=== PATIENT | male | born 1940 | race Caucasian/White ===

== ENCOUNTER → 2017-02-04 | Outpatient (CLI) | payer MEDICARE, BC, OTHER ==
[~2017-02-04] MED LIST: /ATOR40TA PO; /FEXO18TA; AMLO5TAB; AMLO5TAB2 PO; ASPI81TA45 PO; GLUC500T PO; LASI40TA PO; LOPR50TA; NORV5TAB; OMEP20TA7 PO; TRAN4TAB PO; VITA100067 PO; VITA250011 PO
== END ==
LOC: M LAB 13:24
PROVIDERS: ATTEND Ophthalmology
DX: H02.403 Unspecified ptosis of bilateral eyelids (principal)

== ENCOUNTER 2017-02-15 05:57 | Day surgery (SDC) | payer MEDICARE, BC, OTHER ==
--- NOTE | 2017-02-14 11:14 | HPE ---
DATE OF ADMISSION: 02/15/2017 ROOM: Operating room. HISTORY AND CHIEF COMPLAINT: Mr. Steinberg is a 76-year-old gentleman who has had progressive drooping of the upper eyelids of both eyes. This is affecting his vision and visual field. He is being admitted to have a levator aponeurosis resection, advancement and reattachment with a blepharoplasty of both upper eyelids under local anesthetic with monitored sedation. PAST OCULAR HISTORY: Please see the history of present illness. Previous levator aponeurosis resection, advancement and reattachment with blepharoplasty of both upper eyelids in 2000, orbital inflammatory syndrome right eye 2001 and 2003. Previous cataract surgery both eyes. Dry eye syndrome both eyes. Nonproliferative diabetic retinopathy left eye. Chorioretinal scar right eye. Hypertensive retinopathy both eyes. Senile ectropion lower eyelids both eyes. PAST MEDICAL HISTORY AND PREOPERATIVE MEDICAL EVALUATION AND ASSESSMENT: Please see the report by SCOUT Diaz. Diabetes mellitus type 2, coronary artery disease, previous heart attack 1987 and 1995, gastroesophageal reflux disease (GERD), hypertension. MEDICATIONS: Please refer to the report by SCOUT Diaz. Amlodipine, aspirin 81 mg, vitamin B12, furosemide, Lipitor, metformin, Nitrostat, omeprazole, RA vitamin D, trandolapril. ALLERGIES: No known drug allergies. FAMILY HISTORY: Positive for cataract with respect to eye disease. SOCIAL HISTORY: Previous smoker. On examination, The visual acuity with current glasses: Right eye 20/25, -1, left eye 20/20, -2. Intraocular pressure by Goldmann tonometry: 15 mmHg. Pupils: Both eyes: Round, regular and reactive to light. Extraocular movements: Both eyes: Full. External examination: Both eyes: Involutional dermatochalasis upper and lower eyelids. Orbital fat herniation lower eyelids. Margin to brow skin measurement: Right eye: 27 mm, left eye: 30 mm. Lateral trichiasis upper lid left eye. Myogenic ptosis upper eyelids both eyes. Marginal reflex distance: Both eyes: 1 mm. Levator function both eyes: 12 mm. No lid lagophthalmos present. Senile ectropion lower eyelids both eyes. 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 Slit lamp examination: Corneas: Both eyes: 1+ superficial punctate keratitis. Anterior chamber: Both eyes: Normal. Iris: Both eyes: Normal. Lens: Both eyes: PCIOL. Visual: Ptosis visual field untaped: Right eye: 40 degrees superior visual field loss, left eye: 45 degree superior visual field loss. Ptosis visual field taped: Both eyes: 10 degree superior visual field loss. IMPRESSION: 1. Myogenic ptosis upper eyelids both eyes, interfering with vision and visual field. 2. Involutional dermatochalasis upper eyelids both eyes. PLAN: I discussed the findings with Mr. Steinberg. I indicated to him that the myogenic ptosis and the dermatochalasis of both upper eyelids have reoccurred. I discussed with him the procedure, benefit, expected outcomes, risks, and alternatives. I mentioned that a levator aponeurosis resection, advancement and reattachment with a blepharoplasty procedure both upper eyelids with improve the position of his upper eyelids and improve the vision and visual field. I mentioned to him that the risk of surgery includes, but is not limited to, surgery is not guaranteed, recurrence, bleeding, infection, inflammation, scarring, over correction, under correction, injury to the globe or the orbit causing impaired vision. I mentioned to him that he has had previous orbital inflammatory syndrome on two occasions. This can reoccur. I have prescribed prednisone 20 mg daily for 5 days postoperatively. Mr. Steinberg elected to have the said surgery performed. I obtained an informed consent. I advised him to stop his aspirin 81 mg 1 week preoperatively. His primary care provider will recommend any other preoperative and postoperative medications. COLIN
[~2017-02-15] VITALS: Ht 170.2 cm; Wt 88.0 kg
[2017-02-15] MEDS ORDERED: LIDOCAINE W/EPINEPHRINE 1% 20ML VIAL As Ordered ONE (06:27)
[2017-02-15] MEDS ORDERED: BUPIVACAINE 0.75% 10 ML VIAL As Ordered ONE (06:27)
[2017-02-15] MEDS ORDERED: HYALURONIDASE 200 UNITS/ML VIAL (J3470) As Ordered ONE (06:28)
[2017-02-15] MEDS ORDERED: CIPROFLOXACIN 0.3% OPHTH OINTMENT As Ordered ONE (06:29)
[2017-02-15] MEDS ORDERED: LR 1,000 ML IV ONE (06:30)
[2017-02-15] MEDS ORDERED: dexameTHASONE 4 MG/ML 1ML VIAL (J1100) IV ONE (06:30)
[2017-02-15] MEDS ORDERED: TOBRADEX OPHTH OINT 3.5 GM As Ordered ONE (06:30)
[2017-02-15] MEDS ORDERED: fentaNYL 100 MCG/2 ML INJECTION (J3010) As Ordered ONE (07:15)
[2017-02-15] MEDS ORDERED: PROPOFOL 200 MG/20 ML VIAL As Ordered ONE (07:15)
[2017-02-15] MEDS ORDERED: MIDAZOLAM INJ 2 MG/2 ML VIAL (J2250) As Ordered ONE (07:15)
[2017-02-15] MEDS ORDERED: POVIDONE-IODINE 5% OPHTH PREP SOL 30ML As Ordered ONE (07:29)
[2017-02-15] MEDS ORDERED: CIPROFLOXACIN 0.3% OPHTH OINTMENT OU SCH (09:00)
[2017-02-15] MEDS ORDERED: ACETAMINOPHEN TAB 650MG DOSE (2X325MG) PO PRN (09:15)
[2017-02-15] MEDS ORDERED: PERCOCET 5MG/325MG TAB PO PRN (09:30)
[2017-02-15] MEDS ORDERED: LR 1,000 ML IV SCH (09:30)
[2017-02-15] MEDS ORDERED: ONDANSETRON 4MG/2ML VIAL (J2405) IV PRN (09:30)
[2017-02-15 09:35] VITALS: BP 164/74
--- NOTE | 2017-02-15 19:53 | RO ---
DATE OF PROCEDURE: 02/15/2017 SURGEON: Danilo Tillman MD HAIR OR BEAUTY [employer]ON ASSISTANT: PREOPERATIVE DIAGNOSIS: 1. Myogenic ptosis upper eyelid both eyes, affecting vision and visual field. 2. Involutional dermatochalasis upper eyelids both eyes. POSTOPERATIVE DIAGNOSIS: 1. Myogenic ptosis upper eyelids, both eyes, affecting vision and visual field. 2. Involutional dermatochalasis upper eyelids ,both eyes fatty infiltration of levator muscle, Herings phenomenon positive, scar tissue of orbital septum and levator aponeurosis. 3. 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 ANESTHESIA: Local with monitored sedation. OPERATIVE PROCEDURE: 1. Levator aponeurosis resection, advancement and reattachment of upper eyelid both eyes. 2. Blepharoplasty upper eyelids both eyes. 3. Excision of scar tissue of orbital septum and levator aponeurosis both eyes. 4. Transverse tarsotomy of lateral eyelid of left eye. DESCRIPTION OF OPERATION: The patient was brought into the operating room and positioned appropriately. A surgical marking pen was used to jason the upper lid crease height at 9 mm using a pair of calipers and then the upper incision line was marked leaving 20 mm of skin from the eyebrow to the lash line. After adequate sedation, local anesthetic consisting of Xylocaine 1% mixed 50/50 with Marcaine 0.75% and epinephrine 1:200,000 with 200 units of Vitrase per 10 mL of local anesthetic, 2.25 mL was injected subcutaneously along the incision lines and superior border of the tarsus of both upper eyelids. The full face was prepped with Betadine and draped in the usual sterile manner. A 6-0 silk traction suture was placed at the lid margin just nasal to the pupil and the upper eyelid was retracted inferiorly for both eyes. The skin incision was made with a #15 blade both eyes. Good hemostasis was ensured throughout the procedure using bipolar cautery. The orbicularis muscle was identified and incised at the temporal margin and then dissected down to the suborbicularis plane both eyes. The myocutaneous flap was then excised from temporal to medial both eyes. The orbital septum was identified and incised just inferior to the superior orbital rim and the incision was extended medially and laterally. The medial and central orbital fat pads were identified and retracted to reveal the levator muscle and aponeurosis which was detached from its normal position on the superior tarsus. The levator muscle had fatty infiltration. There was scar tissue secondary to previous surgery and orbital inflammatory syndrome between the orbital septum and levator aponeuosis of both eyes. The scar tissue was excised from the upper eyelids of both eyes. The superior surface of the tarsus was exposed. A double-armed 5-0 nylon suture was used to reattach the levator aponeurosis to the tarsus both eyes. The suture was tied temporarily. The patient was sat up and the lid margin contour and marginal reflex distance was checked. The 5-0 nylon suture was adjusted until the marginal reflex distance was 3 mm. The patient was then placed supine and the 5-0 nylon suture was tied and cut. 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 Transverse tarsotomy of lateral eyelid of left eye was performed. Hemostasis was checked. The skin and orbicularis layer was then closed with interrupted and continuous 6-0 plain suture for both upper eyeids. There were no complications during the surgery. At the end of the procedure, a combination of Ciloxan ophthalmic ointment mixed with TobraDex ophthalmic ointment was applied to the incision and the sutures. A cold saline compress was placed over the closed upper eyelid, OU. The patient left for the recovery room in good condition. Specimens were sent to pathology. [facility] CLINICFrancheska
[2017-02-16] MEDS ORDERED: predniSONE 20 MG TAB PO SCH (09:00)
== END 2017-02-15 09:45 | disposition home or self-care (01) ==
LOC: M SDC 05:57
PROVIDERS: ATTEND Ophthalmology
DX: H02.831 Dermatochalasis of right upper eyelid (principal); H02.832 Dermatochalasis of right lower eyelid; M62.89 Other specified disorders of muscle; R29.818 Other symptoms and signs involving the nervous system; H02.011 Cicatricial entropion of right upper eyelid; H02.014 Cicatricial entropion of left upper eyelid; E11.9 Type 2 diabetes mellitus without complications; I10 Essential (primary) hypertension; I25.2 Old myocardial infarction; I49.9 Cardiac arrhythmia, unspecified; I25.10 Atherosclerotic heart disease of native coronary artery without angina pectoris; E78.00 Pure hypercholesterolemia, unspecified; R60.0 Localized edema; K21.9 Gastro-esophageal reflux disease without esophagitis; M12.9 Arthropathy, unspecified; M54.2 Cervicalgia; J32.9 Chronic sinusitis, unspecified; Z88.5 Allergy status to narcotic agent; Z91.041 Radiographic dye allergy status; Z79.899 Other long term (current) drug therapy; Z79.82 Long term (current) use of aspirin; Z87.891 Personal history of nicotine dependence; Z96.1 Presence of intraocular lens; H02.423 Myogenic ptosis of bilateral eyelids
CPT/HCPCS: 15823; 67904; 88302; J1100; J2250; J3010; J3470

== ENCOUNTER → 2023-05-18 | Outpatient (CLI) | payer MEDICARE, BC, OTHER ==
[~2023-05-18] MED LIST changes: -/ATOR40TA PO; +AMLO1TAB24 PO; -AMLO5TAB2 PO; +LIPI1TAB2 PO
== END ==
LOC: M EKG 12:40
PROVIDERS: ATTEND Physician Assistant
DX: R42 Dizziness and giddiness (principal)

== ENCOUNTER → 2023-06-24 | Outpatient (CLI) | payer MEDICARE, BC | LOC: M CARPUL 08:41 | PROVIDERS: ATTEND Physician Assistant | DX: R06.02 Shortness of breath (principal) ==

== ENCOUNTER 2023-12-28 07:54 | Inpatient (IN) | payer MEDICARE, BC ==
[~2023-12-28] VITALS: Ht 172.7 cm; Wt 92.3 kg
[2023-12-28 11:53] VITALS: BP 157/76; TEMP 97.9; O2SAT 92
[2023-12-28] MEDS: INSULIN LISPRO (NovoLOG) PER UNIT SC SCH ×3 (12:00→21:00)
[2023-12-28] MEDS ORDERED: DEXTROSE 50% 50ML SYRINGE IV PRN (12:15)
[2023-12-28] MEDS ORDERED: GLUCOSE 4 GM CHEW PO PRN (12:15)
[2023-12-28] MEDS ORDERED: GLUCAGON INJ 1MG VIAL SC PRN (12:15)
[2023-12-28] MEDS ORDERED: SPIR-10 PO (12:48)
[2023-12-28] MEDS ORDERED: POTA-151 PO (12:48)
[2023-12-28] MEDS ORDERED: NITR0.4S14 SL (12:48)
[2023-12-28] MEDS ORDERED: AMLO1TAB25 PO (12:48)
[2023-12-28] MEDS ORDERED: VITA200048 PO (12:48)
[2023-12-28] MEDS ORDERED: ASPI81TA26 PO (12:55)
[2023-12-28] MEDS ORDERED: ATOR40TA75 PO (12:55)
[2023-12-28] MEDS ORDERED: TORS20TA2 PO (12:55)
[2023-12-28] MEDS ORDERED: OMEP1CAP73 PO (12:55)
[2023-12-28] MEDS ORDERED: B-12100021 PO (12:55)
[2023-12-28] MEDS ORDERED: METF500T13 PO (12:55)
[2023-12-28] MEDS ORDERED: AMIO200T49 PO (12:56)
[2023-12-28 12:57] LABS: BASO % 0.3 % (0.0-1.0); EOS % 0.2 % (0.0-3.0); HEMATOCRIT 38.1 % (42.0-52.0); HEMOGLOBIN 12.5 g/dl (13.5-17.5); LYMPH % 15.2 % (24.0-44.0); MEAN CORPUSCULAR HEMOGLOBIN 29.4 pg (27.0-33.0); MEAN CORPUSCULAR HGB CONC 32.8 g/dl (32.0-36.5); MEAN CORPUSCULAR VOLUME 89.6 fl (80.0-96.0); MONO # 1.1 10^3/uL (0.0-0.8); MONO % 8.3 % (2.0-8.0); NEUTROPHILS # 9.8 10^3/uL (1.5-8.5); NEUTROPHILS % 75.3 % (36.0-66.0); PLATELET COUNT, AUTOMATED 360 10^3/uL (150-450); RED BLOOD COUNT 4.25 10^6/uL (4.30-6.10)
[2023-12-28] MEDS ORDERED: HOME MED LIST COMPLETE! XX SCH (13:00)
[2023-12-28] MEDS ORDERED: NITROGLYCERIN 0.4MG SUBL TABLET SL PRN (13:00)
[2023-12-28 13:30] LABS: ALBUMIN 3.4 G/DL (3.2-5.2); ALKALINE PHOSPHATASE 159 U/L (46-116); ALT/SGPT 35 U/L (7.0-40); AST/SGOT 21 U/L (<34); BILIRUBIN,TOTAL 0.7 MG/DL (0.3-1.2); BLOOD UREA NITROGEN 19 MG/DL (9-23); CALCIUM LEVEL 10.1 MG/DL (8.3-10.6); CARBON DIOXIDE LEVEL 34 MMOL/L (20-31); CHLORIDE LEVEL 100 MMOL/L (98-107); CREATININE FOR GFR 1.14 MG/DL (0.70-1.30); GLOMERULAR FILTRATION RATE > 60.0 (>35); GLUCOSE, FASTING 103 MG/DL (74-106); MAGNESIUM LEVEL 1.9 MG/DL (1.8-2.4); POTASSIUM SERUM 4.5 MMOL/L (3.5-5.1); SODIUM LEVEL 136 MMOL/L (136-145); TOTAL PROTEIN 6.9 G/DL (5.7-8.2)
[2023-12-28] MEDS: ASPIRIN 81MG ENTERIC TABLET PO SCH (13:31)
[2023-12-28] MEDS: amLODIPine 5 MG TAB PO SCH (13:32)
[2023-12-28] MEDS: ATORVASTATIN 20 MG TAB PO SCH (13:32)
[2023-12-28] MEDS: AMIODARONE 200 MG TAB (PACERONE) PO SCH (13:32)
[2023-12-28] MEDS: NS 1,000 ML IV SCH (14:04)
[2023-12-28] MEDS: PANTOPRAZOLE 40MG VIAL IV SCH (14:04)
[2023-12-28 17:24] VITALS: BP 148/82; TEMP 98; O2SAT 96
[2023-12-28 20:27] VITALS: BP 142/66; TEMP 98; O2SAT 94
[2023-12-28] MEDS: HEPARIN SOD (PORCINE) 5000UNITS/ML 1ML VIAL/SYRINGE SQ SCH (21:09)
[2023-12-28 23:12] VITALS: BP 137/62; TEMP 98.1; O2SAT 94
[2023-12-29 03:23] VITALS: BP 150/72; TEMP 97.1; O2SAT 91
[2023-12-29 06:28] LABS: BASO % 0.3 % (0.0-1.0); EOS # 0.1 10^3/uL (0.0-0.5); EOS % 1.3 % (0.0-3.0); HEMATOCRIT 36.7 % (42.0-52.0); HEMOGLOBIN 11.7 g/dl (13.5-17.5); LYMPH # 2.7 10^3/uL (1.5-5.0); LYMPH % 26.1 % (24.0-44.0); MEAN CORPUSCULAR HEMOGLOBIN 29.1 pg (27.0-33.0); MEAN CORPUSCULAR HGB CONC 31.9 g/dl (32.0-36.5); MEAN CORPUSCULAR VOLUME 91.3 fl (80.0-96.0); MONO # 1.1 10^3/uL (0.0-0.8); MONO % 10.3 % (2.0-8.0); NEUTROPHILS # 6.4 10^3/uL (1.5-8.5); NEUTROPHILS % 61.3 % (36.0-66.0); PLATELET COUNT, AUTOMATED 338 10^3/uL (150-450); RED BLOOD COUNT 4.02 10^6/uL (4.30-6.10); WHITE BLOOD COUNT 10.4 10^3/uL (4.0-10.0)
[2023-12-29 07:18] LABS: ALKALINE PHOSPHATASE 140 U/L (46-116); ALT/SGPT 28 U/L (7.0-40); AST/SGOT 21 U/L (<34); BILIRUBIN,TOTAL 0.7 MG/DL (0.3-1.2); BLOOD UREA NITROGEN 15 MG/DL (9-23); CALCIUM LEVEL 9.6 MG/DL (8.3-10.6); CARBON DIOXIDE LEVEL 31 MMOL/L (20-31); CHLORIDE LEVEL 106 MMOL/L (98-107); GLOMERULAR FILTRATION RATE > 60.0 (>35); GLUCOSE, FASTING 97 MG/DL (74-106); POTASSIUM SERUM 4.1 MMOL/L (3.5-5.1); SODIUM LEVEL 140 MMOL/L (136-145); TOTAL PROTEIN 6.2 G/DL (5.7-8.2)
[2023-12-29 07:24] VITALS: BP 151/66; O2SAT 96
[2023-12-29 08:27] VITALS: BP 151/66
[2023-12-29] MEDS: TORSEMIDE 20 MG TAB PO SCH (08:27)
[2023-12-29] MEDS: SENOKOT S TAB PO SCH (08:28)
[2023-12-29] MEDS: SPIRONOLACTONE 25 MG TAB PO SCH (08:28)
[2023-12-29] MEDS ORDERED: SENN-52 PO (10:29)
== END 2023-12-29 15:38 | disposition home or self-care (01) | DRG 392 ==
LOC: M PCU 11:41
PROVIDERS: ADMIT Internal Medicine; ATTEND Internal Medicine
DX: K59.00 Constipation, unspecified (principal); E11.9 Type 2 diabetes mellitus without complications; I50.9 Heart failure, unspecified; I11.0 Hypertensive heart disease with heart failure; I25.10 Atherosclerotic heart disease of native coronary artery without angina pectoris; K21.9 Gastro-esophageal reflux disease without esophagitis; E55.9 Vitamin D deficiency, unspecified; Z95.2 Presence of prosthetic heart valve; I25.2 Old myocardial infarction; Z88.5 Allergy status to narcotic agent; Z91.041 Radiographic dye allergy status; Z79.899 Other long term (current) drug therapy